=== PATIENT | male | born 1990 | race Caucasian/White ===

== ENCOUNTER 2020-04-27 18:47 | Emergency (ER) | payer SELFPAY ==
[2020-04-27 19:04] VITALS: BP 163/108; PULSE 55; RESP 16; TEMP 36.6; O2SAT 100
--- NOTE | 2020-04-27 19:30 | ED.DENTAL ---
HPI - Dental/Oral General Chief complaint: Dental/Oral Stated complaint: Oral/Dental Time Seen by Provider: 04/27/20 19:25 Source: patient and RN notes reviewed Mode of arrival: ambulatory Limitations: no limitations History of Present Illness HPI Narrative: Patient presents today complaining of right lower dental pain since yesterday that has been worsening since onset. Pain waxes and wanes and he currently rates his pain 9/10. He has been taking Tylenol and tramadol without much relief. Denies shortness of breath, fever, difficulty swallowing. He does not currently have a dentist. Reports teeth are broken and have a large cavity. MD Complaint: tooth pain Related Data Allergies Allergy/AdvReac Type Severity Reaction Status Date / Time No Known Allergies Allergy Verified 04/27/20 18:55 Review of Systems Review of Systems: Narrative: CONSTITUTIONAL: Denies body aches, fever, chills, or sweats. EYES: Denies visual changes, redness, or discharge. ENT: Denies rhinorrhea, congestion, sore throat, or otalgia. +Tooth pain CARDIOVASCULAR: Denies chest pain, palpitations, or edema. RESPIRATORY: Denies cough or dyspnea. GASTROINTESTINAL: Denies abdominal pain, nausea, vomiting, or diarrhea. GENITOURINARY: Denies dysuria or hematuria. SKIN: Denies rash, itching, or wounds. MUSCULOSKELETAL: Denies back pain, joint pain, or myalgia. NEUROLOGIC: Denies headache, numbness, tingling, or weakness. PSYCH: Denies depression or anxiety. PMFSH Comments At time of signature, I have reviewed and agree with nursing past medical, surgical, social and family history unless otherwise noted. Please see nursing chart for further information. There is no relevant family history pertinent to the presenting complaint Exam Narrative: Exam Narrative: GENERAL: Well-appearing, well-nourished, and in no acute distress. HEAD: Normocephalic, atraumatic. EYES: EOMI. No redness or drainage. Conjunctivae normal. ENT: Mucous membranes pink and moist. Nares clear. No rhinorrhea. Throat normal. Uvula midline. + Large cavity in tooth #32. Tooth #31 is missing. Tooth #30 is broken. No gum or facial swelling noted. NECK: Normal AROM. Supple. No lymphadenopathy. CHEST: No respiratory distress. EXTREMITIES: Normal range of motion. No edema. SKIN: Warm, dry, no rash. Capillary refill normal. Normal skin turgor. NEURO: No focal deficits. Alert and oriented x3. Gait steady. PSYCH: Normal affect. No signs of depression or anxiety. Course Vital Signs Vital signs: Vital Signs Temperature 97.9 F 04/27/20 19:04 Pulse Rate 55 L 04/27/20 19:04 Respiratory Rate 16 04/27/20 19:04 Blood Pressure 163/108 H 04/27/20 19:04 Pulse Oximetry 100 04/27/20 19:04 Temperature 97.9 F 04/27/20 19:04 Pulse Rate 55 L 04/27/20 19:04 Respiratory Rate 16 04/27/20 19:04 Blood Pressure 163/108 H 04/27/20 19:04 Pulse Oximetry 100 04/27/20 19:04 Reviewed. Pt has been instructed to follow up with his PCP regarding his elevated blood pressure today. MDM - Dental/Oral Differential Diagnosis Differential diagnosis: Likely gingival abscess, dental caries, toothache, dental abscess and fracture of tooth Critical Care Time Critical Care Time Critical Care Time: No Discharge Plan Discharge Clinical Impression: Dental caries Patient Disposition: Home, Self-Care Condition: Stable Instructions: Antibiotic Form, Toothache (ED) Additional Instructions: Please take the clindamycin as prescribed until gone. Continue [id number] medication for your symptoms. You have been provided a list of dentists in the area. Please call and follow-up for further evaluation and treatment. As discussed, if you develop fever, shortness of breath, difficulty swallowing, or severe facial swelling, please go the ER immediately. Your blood pressure was elevated above 120/80 today at Urgent Care. This puts you above the threshold for follow up. Please s
== END 2020-04-27 19:40 | disposition home or self-care (01) ==
PROVIDERS: Emergency Provider Nurse Practitioner
DX: K02.9 Dental caries, unspecified (principal)
CPT/HCPCS: 99203; G0463